=== PATIENT | male | born 1985 | race Caucasian/White ===

== ENCOUNTER 2024-04-01 09:01 | Outpatient (AMB) | payer OTHER, SELFPAY ==
--- OUTSIDE RECORDS SUMMARY | 2024-04-01 09:03 | XMS_ITS | Patient Health Record ---
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 Name Role Phone Martin Luna Primary Care Provider Unavailabl e ALLERGIES No Known Allergies REASON FOR REFERRAL No Information MEDICATIONS Medication SIG (Take, Route, Fr equency, Duration) Notes Start Date End Date Status Ibuprofen 600 MG 1 tablet with food o r milk as needed Orally Three times a day Active PLAN OF TREATMENT Pending Test Test Name Order Date Basic Metabolic Panel (8) 07/26/2021 MRI : Lower Ext Other Than Joint W/WO X ray : Foot, right 3v 07/26/2021 Insurance Providers Payer Name Payer Address Payer Phone Subscriber Number Group Number Insured Name Patient Relationship to Insured Coverage Start Date Coverage End Date [facility] [address] [place] [address] [phone] [id number] Ricardo Drake Self - patient is the insured MEDICAL (GENERAL) HISTORY Medical History History ICD Code Dyslipidemia Severe obiseity Auditory hallucination PTSD ADHD Depression Surgical History Surgery Date(Month/Year) [place] teeth extraction
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
[2024-04-01 09:08] VITALS: BP 116/78; PULSE 72; TEMP 37.2; O2SAT 98; BMI 41.2
== END 2024-04-01 10:41 | disposition home or self-care (01) ==
PROVIDERS: PCP Internal Medicine; Visit Provider Registered Nurse
DX: M54.2 Cervicalgia (principal); V87.7XXA Person injured in collision between other specified motor vehicles (traffic), initial encounter
CPT/HCPCS: 99214

== ENCOUNTER 2024-04-01 09:35 | Outpatient (REF) | payer OTHER, SELFPAY ==
--- NOTE | ~2024-04-01 | XR_ITS ---
EXAMINATION: XR CERVICAL SPINE CLINICAL INFORMATION: Cervicalgia. COMPARISON: None available. TECHNIQUE: 3 views of the cervical spine were obtained. FINDINGS: The cervical spine is imaged through the C7 vertebral body. Normal sagittal alignment. Vertebral body heights are maintained. Moderate intervertebral disc space narrowing at C5-C6 with marginal osteophytes. Lateral masses are symmetric. Prevertebral soft tissues are within normal limits. XR/XR cervical spine 3V IMPRESSION: Moderate degenerative disc disease at C5-C6.
== END 2024-04-01 09:36 | disposition home or self-care (01) ==
LOC: HO.HMGCX 09:35
PROVIDERS: PCP Internal Medicine; Visit Provider Registered Nurse
DX: M54.2 Cervicalgia (principal)
CPT/HCPCS: 72040